=== PATIENT | female | born 1965 | race Caucasian/White ===

== ENCOUNTER 2020-12-24 09:56 | Emergency (ER) | payer BC, SELFPAY ==
[2020-12-24 10:11] VITALS: BP 142/89; PULSE 79; RESP 20; TEMP 36.4; O2SAT 98
--- NOTE | 2020-12-24 11:52 | ED.GENADULT ---
HPI - General Adult General Chief complaint: Skin/Abscess/Foreign Body Stated complaint: Skin infection Time Seen by Provider: 12/24/20 10:16 Source: patient and RN notes reviewed Mode of arrival: ambulatory Limitations: no limitations History of Present Illness HPI narrative: Patient 55-year-old female who presents with wound to the right breast for the last several days noting scabbed over lesion with erythematous margins.she is a diabetic type II takes her medicines is not compliant with some patient denies any fever chills nausea vomiting or other complaints not been seen for this nor she taken anything for Related Data Allergies Allergy/AdvReac Type Severity Reaction Status Date / Time No Known Allergies Allergy Verified 12/24/20 10:16 Review of Systems Review of Systems: All systems reviewed & are unremarkable except as noted in HPI and below PMFSH Past Medical History Medical History (Updated 12/24/20 @ 11:58 by Olivier Thomas PA-C) Diabetes mellitus Social History Social History (Updated 12/24/20 @ 11:53 by Olivier Thomas PA-C) Smoking status: Current every day smoker Gender identity (if verbalized by the patient): Female Exam Narrative: GENERAL: Well-appearing, well-nourished, and in no acute distress. HEAD: Normocephalic, atraumatic. EYES: PERRLA and EOMI. ENT: Nares clear, no rhinorrhea or epistaxis. Mucous membranes moist. CHEST: Clear to auscultation. No respiratory distress. No wheezes rales or rhonchi HEART: Regular rate and rhythm. No murmur heard. Normal peripheral pulses. EXTREMITIES: Normal range of motion. No edema. SKIN: Warm, dry, no rash. Dime sized wound that is superficial to the left breast with central scabbing with erythematous margins no fluctuance drainage lesion is dry NEURO: No focal deficits. Alert and oriented x3. Cranial nerves II through XII grossly intact PSYCH: Normal mood and affect. Course Course Emergency Course: Patient in the room no distress will be referred back to primary care for dermatology referral on reevaluation she is afebrile nontoxic-appearing no distress felt appropriate for outpatient reevaluation Vital Signs Vital signs: Vital Signs Temperature 97.6 F 12/24/20 10:11 Pulse Rate 79 12/24/20 10:11 Respiratory Rate 20 12/24/20 10:11 Blood Pressure 142/89 H 12/24/20 10:11 Pulse Oximetry 98 12/24/20 10:11 Temperature 97.6 F 12/24/20 10:11 Pulse Rate 79 12/24/20 10:11 Respiratory Rate 20 12/24/20 10:11 Blood Pressure 142/89 H 12/24/20 10:11 Pulse Oximetry 98 12/24/20 10:11 Medical Decision Making MDM Narrative Medical decision making narrative: Patient with wound to the right breast evaluated the emergency department will be placed on antibiotics and referred to primary care Vital Signs Vital Signs: Vital Signs Temperature 97.6 F 12/24/20 10:11 Pulse Rate 79 12/24/20 10:11 Respiratory Rate 20 12/24/20 10:11 Blood Pressure 142/89 H 12/24/20 10:11 Pulse Oximetry 98 12/24/20 10:11 Temperature 97.6 F 12/24/20 10:11 Pulse Rate 79 12/24/20 10:11 Respiratory Rate 20 12/24/20 10:11 Blood Pressure 142/89 H 12/24/20 10:11 Pulse Oximetry 98 12/24/20 10:11 Discharge Plan Discharge Clinical Impression: Cellulitis Patient Disposition: Home, Self-Care Condition: Stable Instructions: Antibiotic Form, Cellulitis (ED) Additional Instructions: Follow up with primary care in the next 2-3 days for re-evaluation return if symptoms worsen or concerns, any increase in redness swelling pain or fever over 100.5 Clean wound with mild soapy water. Apply antibiotic ointment and clean dressing at least three times daily Prescriptions: New cephalexin 500 mg tablet 500 mg PO Q8H 10 Days Qty: 30 RF: 0 mupirocin 2 % ointment 1 applic topical TID Qty: 15 RF: 0 Follow-up/Referrals: Chris Casillas MD [Physician] - Holger Spivey MD [Physician] - GEOVANNII
[2020-12-24 12:20] VITALS: BP 156/80; PULSE 77; RESP 20; O2SAT 99
== END 2020-12-24 12:20 | disposition home or self-care (01) ==
PROVIDERS: Emergency Provider Emergency Medicine
DX: L03.818 Cellulitis of other sites (principal); E11.9 Type 2 diabetes mellitus without complications; F17.200 Nicotine dependence, unspecified, uncomplicated
CPT/HCPCS: 99283

== ENCOUNTER 2021-06-13 09:26 | Outpatient (CLI) | payer BC, SELFPAY ==
--- NOTE | 2021-06-13 11:00 | NEURO_ITS ---
Impression: # care home insulin dependent diabetic complains of severe pain in lower extremities. # Severe neuropathy with neurogenic changes in muscles, distal more than proximal. # Clinical correlation recommended. Nerve Conduction Studies Anti Sensory Summary Table Stim Site NR Peak (ms) P-T Amp (?V) Site1 Site2 Delta-P (ms) Dist (cm) Silver (m/s) Left Sup Fibular Anti Sensory (Ant Lat Mall) NO RESPONSE 14 cm NR 14 cm Ant Lat Mall 16.0 Right Sup Fibular Anti Sensory (Ant Lat Mall) NO RESPONSE 14 cm NR 14 cm Ant Lat Mall 16.0 Left Sural Anti Sensory (Lat Mall) NO RESPONSE Calf NR Calf Lat Mall 16.0 Right Sural Anti Sensory (Lat Mall) NO RESPONSE Calf NR Calf Lat Mall 16.0 Motor Summary Table Stim Site NR Onset (ms) O-P Amp (mV) Site1 Site2 Delta-0 (ms) Dist (cm) Silver (m/s) Left Peroneal Motor (Vastus Med) NO RESPONSE Ankle NR Popit Ankle 0.0 Popit NR Right Peroneal Motor (Vastus Med) NO RESPONSE Ankle NR Popit Ankle 0.0 Popit NR Left Tibial Motor (Abd Mendez Brev) NO RESPONSE Ankle NR Knee Ankle 0.0 Knee NR Right Tibial Motor (Abd Mendez Brev) NO RESPONSE Ankle NR Knee NR F Wave Studies NR F-Lat (ms) L-R F-Lat (ms) Left Peroneal (Mrkrs) (EDB) NO RESPONSE NR Right Peroneal (Mrkrs) (EDB) NO RESPONSE NR Left Tibial (Mrkrs) (Abd Hallucis) NO RESPONSE NR Right Tibial (Mrkrs) (Abd Hallucis) NO RESPONSE NR EMG Side Muscle Nerve Root Ins Act Fibs Amp Dur Recrt Comment Right AntTibialis Dp Br Fibular L4-5 Nml Nml Nml >12ms Reduced Right Gastroc Tibial S1-2 Nml Nml Nml >12ms Reduced Right Fibularis Long Sup Br Fibular L5-S1 Nml Nml Nml >12ms Reduced Right Flex Dig Long Tibial L5-S2 Nml Nml Nml >12ms Reduced Right Ext Dig Brev Dp Br Fibular L5, S1 Nml Nml Nml >12ms Reduced Left AntTibialis Dp Br Fibular L4-5 Nml Nml Nml >12ms Reduced Left Gastroc Tibial S1-2 Nml Nml Nml >12ms Reduced Left Fibularis Long Sup Br Fibular L5-S1 Nml Nml Nml >12ms Reduced Left Flex Dig Long Tibial L5-S2 Nml Nml Nml >12ms Reduced Left Ext Dig Brev Dp Br Fibular L5, S1 Nml Nml Nml >12ms Reduced MTDD
== END 2021-06-13 09:27 | disposition home or self-care (01) ==
PROVIDERS: Visit Provider Family Medicine
DX: G62.9 Polyneuropathy, unspecified (principal)
CPT/HCPCS: 95886; 95910

== ENCOUNTER 2022-06-12 13:12 | Outpatient (CLI) | payer BC, SELFPAY ==
--- NOTE | ~2022-06-12 | US_ITS ---
Procedure: Duplex Doppler examination of the bilateral carotids. Indication: Stenosis, diabetes Technique: Real time, color-flow and pulse wave Doppler examination of the bilateral carotids was performed. Findings: Soriano scale ultrasonography of the right neck demonstrated no significant plaque. There was demonstrat ion of normal color-flow and Doppler waveforms within the right common, internal and external carotid arteries. The peak systolic velocities in the right common, internal and external carotid arteries w ere demonstrated to be 104 cm/sec, 93 cm/sec and 75 cm/sec respectively. The right ICA/CCA ratio was 0.9.The proximal right internal carotid artery demonstrates 0% stenosis relative to the normal distal artery lumen diameter. Soriano scale sonography of the left neck demonstrated small plaque at the left carotid bulb. There was demonstration of normal color-flow and wave forms within the left common, internal and external carot id arteries. The peak systolic velocities in the left common, internal and external carotid arteries were demonstrated to be 114cm/sec, 113 cm/sec and 141 cm/sec respectively. The left ICA/CCA ratio was 1.1. The proximal left internal carotid artery demonstrates 0% stenosis relative to the normal dista l artery lumen diameter. There was antegrade flow demonstrated in the bilateral vertebral arteries. Impression: No hemodynamically significant stenosis of the bilateral internal carotid arteries. Antegrade flow in the bilateral vertebral arteries. Note: The methodology used is an indirect measurement validated against a direct method (such as the NASCET criteria) that compares diameters at the stenosis to the distal ICA. Reviewed, dictated and finalized at location . [employer] Impression: No hemodynamically significant stenosis of the bilateral internal carotid arter ies. Antegrade flow in the bilateral vertebral arteries. Note: The methodology used is an indirect measurement validated against a direct meth od (such as the NASCET criteria) that compares diameters at the stenosis to the distal ICA.
== END 2022-06-12 13:13 | disposition home or self-care (01) ==
PROVIDERS: PCP Family Medicine; Visit Provider Ophthalmology
DX: E11.3513 Type 2 diabetes mellitus with proliferative diabetic retinopathy with macular edema, bilateral (principal); H35.353 Cystoid macular degeneration, bilateral; H40.89 Other specified glaucoma; Z79.4 Long term (current) use of insulin
CPT/HCPCS: 93880